=== PATIENT | female | born 1955 | race Asian ===

== ENCOUNTER → 2016-10-04 | Outpatient (CLI) | payer OTHER ==
[~2016-10-04] VITALS: Ht 167.6 cm; Wt 68.5 kg
[~2016-10-04] MED LIST: /ACETCOD2T PO; /AMIT10TA PO; /ONDA4TA PO; /PANT40TA PO; ACTO30TA6 PO; ACTO30TA7 PO; AMBI12.52 PO; AMIT10TA PO; ASPI1TAB PO; ASPI81TAEC PO; BISAC5TA PO; CARB100C PO; CINN500T PO; CIPR500T89 PO; CLON1TAB PO; CLOP75TA2 PO; COLA50CA3 PO; DOCU100C PO; DULC5TAB PO; FLAG500T PO; GABA300C3 PO; INSUH10VL SC; INSULADS SC; INSULANT SC; MELA1CAP2 PO; METF500T PO; METF750T PO; METR500T10 PO; MILKSUS5 PO; MIRA3350 PO; MULTTAB6 PO; NEUR300C PO; NICO14PA EXT; NS 1,000 ML IV SCH; PERC5TAB PO; PLAV75TA38 PO; PROT1TAB2 PO; ROSU10TA PO; SENN1TAB2 PO; SENO8.6T9 PO; SERT-138 PO; TEGR200T PO; TYLE325T5 PO; TYLENOL #3 PO; VYTO10TA PO; VYTO10TA41 PO; ZETI10TA2 PO; ZOCO20TA PO; ZOCO40TA PO; ZOFR20TA PO; [UNRECOGNIZED DRUG - OTHER] PO; ambien PO
--- NOTE | 2016-10-04 10:11 | ROOR ---
Patient Name: Mini Boles Procedure Date: 10/04/2016 9:35 AM Date of : 1955 Age: 61 Room: [facility], [facility]IN [facility] Gender: Female Note Status: Finalized Procedure: Colonoscopy Indications: Personal history of colonic polyps, Abnormal CT of the GI tract, Constipation Providers: Berry Delgado MD Referring MD: KEELY RIGGS MD Requesting Provider: Medicines: Monitored Anesthesia Care Complications: No immediate complications. Procedure: Pre-Anesthesia Assessment: - Prior to the procedure, a History and Physical was performed, and patient medications and allergies were reviewed. The patient is competent. The risks and benefits of the procedure and the sedation options and risks were discussed with the patient. All questions were answered and informed consent was obtained. Patient identification and proposed procedure were verified by the physician, the nurse and the anesthesiologist in the endoscopy suite. Mental Status Examination: alert and oriented. Airway Examination: normal oropharyngeal airway and neck mobility. Respiratory Examination: clear to auscultation. CV Examination: normal. Prophylactic Antibiotics: The patient does not require prophylactic antibiotics. Prior Anticoagulants: The patient has taken Plavix (clopidogrel), last dose was 7 days prior to procedure. ASA Grade Assessment: III - A patient with severe systemic disease. After reviewing the risks and benefits, the patient was deemed in satisfactory condition to undergo the procedure. The anesthesia plan was to use monitored anesthesia care (MAC). Immediately prior to administration of medications, the patient was re-assessed for adequacy to receive sedatives. The heart rate, respiratory rate, oxygen saturations, blood pressure, adequacy of pulmonary ventilation, and response to care were monitored throughout the procedure. The physical status of the patient was re-assessed after the procedure. The Colonoscope was introduced through the anus and advanced to the cecum, identified by appendiceal orifice and ileocecal valve. The colonoscopy was technically difficult and complex due to a tortuous colon. The patient tolerated the procedure well. The quality of the bowel preparation was adequate to identify polyps. Findings: The perianal exam findings include non-thrombosed external hemorrhoids and skin tags. A 5 to 8 mm polyp was found in the sigmoid colon. The polyp was semi-pedunculated. The polyp was removed with a hot snare. Resection and retrieval were complete. Estimated blood loss: none. A 6 to 8 mm polyp was found in the sigmoid colon. The polyp was sessile. The polyp was removed with a hot snare. Resection and retrieval were complete. Estimated blood loss: none. The entire examined colon appeared normal on direct and retroflexion views. Impression: - Non-thrombosed external hemorrhoids and perianal skin tags found on perianal exam. - One 5 to 8 mm polyp in the sigmoid colon, removed with a hot snare. Resected and retrieved. - One 6 to 8 mm polyp in the sigmoid colon, removed with a hot snare. Resected and retrieved. - The entire examined colon is normal on direct and retroflexion views. Recommendation: - Discharge patient to home (ambulatory). - Repeat colonoscopy in 3 - 5 years for surveillance. - Telephone my office for pathology results in 2 weeks. Berry Delgado MD Berry Delgado MD 10/04/2016 10:11:04 AM This report has been signed electronically. Number of Addenda: 0 Note Initiated On: 10/04/2016 9:35 AM Estimated Blood Loss: Estimated blood loss: none.
[2016-10-04 10:40] VITALS: BP 132/77
== END | disposition home or self-care (01) ==
LOC: M OPP 08:44
PROVIDERS: ATTEND Surgery
DX: K64.4 Residual hemorrhoidal skin tags (principal); D12.5 Benign neoplasm of sigmoid colon; E11.9 Type 2 diabetes mellitus without complications; E78.00 Pure hypercholesterolemia, unspecified; M19.90 Unspecified osteoarthritis, unspecified site; F33.9 Major depressive disorder, recurrent, unspecified; F41.9 Anxiety disorder, unspecified; Z97.2 Presence of dental prosthetic device (complete) (partial); Z86.73 Personal history of transient ischemic attack (TIA), and cerebral infarction without residual deficits; Z87.891 Personal history of nicotine dependence; Z79.899 Other long term (current) drug therapy; Z79.84 Long term (current) use of oral hypoglycemic drugs; Z79.4 Long term (current) use of insulin; Z79.82 Long term (current) use of aspirin; Z88.0 Allergy status to penicillin

== ENCOUNTER → 2017-01-10 | Outpatient (CLI) | payer OTHER ==
[~2017-01-10] MED LIST changes: +CRES10TA32 PO; +GABA-282 PO; -GABA300C3 PO; -NS 1,000 ML IV SCH; -ROSU10TA PO
--- NOTE | 2017-01-10 17:58 | REP ---
CT HIP WITHOUT CONTRAST: REASON: Fall one week ago with persistent pain. There is no right hip fracture. There is no evidence of a hip joint effusion. There is no evidence of a soft-tissue mass. There are mild degenerative changes which appear stable from a CT of the abdomen and pelvis of 06/28/2016 which was windowed in bone settings and reviewed along with this exam. IMPRESSION: Mild stable chronic changes. No evidence of acute fracture. Signed by Erik Garcia DO 01/10/2017 06:53 P
== END ==
LOC: M RAD 17:01
DX: M25.551 Pain in right hip (principal)

== ENCOUNTER → 2017-03-02 | Outpatient (CLI) | payer OTHER ==
[~2017-03-02] MED LIST changes: +ACTO30TA15 PO; -ACTO30TA7 PO; +CIPR-249 PO; +CLON0.5T PO; -DOCU100C PO; +DOCU100C16 PO; +JANU50TA4 PO; +METF500T13 PO; +METR1TAB66 PO; -METR500T10 PO; +PLAV1TAB2 PO; -PLAV75TA38 PO; +ROSU40TA PO; -VYTO10TA PO; +VYTO10TA22 PO; -ZETI10TA2 PO; +ZETI10TA30 PO
--- NOTE | 2017-03-03 08:07 | REP ---
CT of the chest without IV contrast: The patient has the following lung nodules: Right upper lobe, 8 mm, image 16. Right upper lobe, 5 mm, image 18. Left upper lobe, 4 mm, image 21. Right upper lobe, 5 mm, image 25. Right upper lobe, 5 mm, image 26. Right upper lobe, 3 ml, image 28. Left upper lobe superior segment, 11 mm, image 33. Right upper lobe, 5 mm, image 36. Right middle lobe, 7 mm, image 40. Right upper lobe, 6 mm, image 41 Right middle lobe, 7 mm, image 40. Right upper lobe, 8 mm, image 42. Right perihilar, 4 mm, image 43. Right perihilar, 4 mm, image 45. Right lower lobe, 5 mm, image 47. Right lower lobe, 5 mm, image 47. Left lower lobe, 6 mm, and 48. There are no acute infiltrates. No pleural effusions. There is no mediastinal or axillary lymph node enlargement. In the absence of IV contrast the study is insensitive for hilar lymph node enlargement. There is a focal blastic lesion in the T2 vertebral body. There is a focal blastic lesion in the T6 vertebral body. The thoracic aorta is unremarkable. Cardiac size is normal. There is calcified atheroma in the coronary arteries. There is a 12 mm right adrenal nodule. The visualized unenhanced upper abdominal contents are otherwise unremarkable. Impression: Multiple lung nodules. Right adrenal nodule. No adenopathy. No acute infiltrate or effusion. Coronary artery calcified vascular atheroma. Signed by Eugenio Lopez MD 03/03/2017 07:58 A
== END ==
LOC: M RAD 16:55
PROVIDERS: ATTEND Psychiatry & Neurology Neurology
DX: R91.8 Other nonspecific abnormal finding of lung field (principal); F17.210 Nicotine dependence, cigarettes, uncomplicated

== ENCOUNTER → 2017-08-27 | Outpatient (CLI) | payer OTHER | LOC: M RAD 17:31 | DX: R91.1 Solitary pulmonary nodule (principal) ==

== ENCOUNTER → 2018-02-25 | Outpatient (CLI) | payer OTHER | LOC: M RAD 13:43 | DX: R91.8 Other nonspecific abnormal finding of lung field (principal) | CPT/HCPCS: 71250 ==

== ENCOUNTER → 2018-04-15 | Outpatient (CLI) | payer OTHER | LOC: M RAD 14:57 | DX: Z12.31 Encounter for screening mammogram for malignant neoplasm of breast (principal) | CPT/HCPCS: 77067 ==

== ENCOUNTER 2018-05-06 14:36 | Emergency (ER) | payer OTHER ==
[2018-05-06 15:16] LABS: BASO # 0.1 10^3/uL (0.0-0.2); BASO % 0.7 % (0.0-1.0); EOS # 0.3 10^3/uL (0.0-0.50); EOS % 3.2 % (0.0-3.0); HEMATOCRIT 34.8 % (36.0-47.0); HEMOGLOBIN 11.9 g/dl (12.0-15.5); IMMATURE GRANULOCYTE % 0.2 % (0-3.0); LYMPH # 3.7 10^3/uL (1.5-4.5); LYMPH % 42.6 % (24.0-44.0); MEAN CORPUSCULAR HEMOGLOBIN 28.1 pg (27.0-33.0); MEAN CORPUSCULAR HGB CONC 34.2 g/dl (32.0-36.5); MEAN CORPUSCULAR VOLUME 82.1 fl (80.0-96.0); MONO # 0.7 10^3/uL (0.0-0.8); MONO % 7.6 % (0.0-5.0); NEUTROPHILS # 3.9 10^3/uL (1.8-7.7); NEUTROPHILS % 45.7 % (36.0-66.0); PLATELET COUNT, AUTOMATED 290 10^3/uL (150-450); RED BLOOD COUNT 4.24 10^6/uL (4.00-5.40); WHITE BLOOD COUNT 8.6 10^3/uL (4.0-10.0)
[2018-05-06 15:45] LABS: AMMONIA 34 uMOL/L (<32)
[2018-05-06 15:46] LABS: ABG BASE EXCESS -4.8 (-2.0-2.0); ABG HCO3 19.7 MEQ/L (22.0-26.0); ABG O2 SATURATION 96.9 % (95.0-99.0); ABG PARTIAL PRESSURE CO2 34.3 mmHg (35.0-45.0); ABG PARTIAL PRESSURE O2 96.6 mmHg (75.0-100.0); ABG STANDARD HCO3 20.5 MEQ/L (22.0-26.0); ABG TOTAL CO2 20.7 MEQ/L (23.0-31.0); ABG pH (ARTERIAL) 7.376 UNITS (7.350-7.450)
[2018-05-06 15:56] LABS: ALBUMIN 3.6 GM/DL (3.2-5.2); ALBUMIN/GLOBULIN RATIO 1.13 (1.00-1.93); ALKALINE PHOSPHATASE 166 U/L (45-117); ALT/SGPT 22 U/L (12-78); ANION GAP 13 MEQ/L (8-16); AST/SGOT 20 U/L (7-37); BILIRUBIN,DIRECT < 0.1 MG/DL (0.0-0.2); BILIRUBIN,TOTAL 0.2 MG/DL (0.2-1.0); BLOOD UREA NITROGEN 13 MG/DL (7-18); CALCIUM LEVEL 8.2 MG/DL (8.8-10.2); CARBON DIOXIDE LEVEL 20 MEQ/L (21-32); CHLORIDE LEVEL 104 MEQ/L (98-107); CK-MB VALUE MASS < 1.0 NG/ML (<3.6); CPK CREATINE PHOSPHOKINASE 31 U/L (26-192); CREATININE FOR GFR 0.92 MG/DL (0.55-1.30); GLOMERULAR FILTRATION RATE > 60.0 (>45); GLUCOSE, FASTING 214 MG/DL (70-100); MB/CK RELATIVE INDEX 3.23 (< OR =4); POTASSIUM SERUM 3.8 MEQ/L (3.5-5.1); SODIUM LEVEL 137 MEQ/L (136-145); TOTAL PROTEIN 6.8 GM/DL (6.4-8.2); TROPONIN I < 0.02 NG/ML (< 0.10)
[2018-05-06 16:08] LABS: KETONE, URINE AUTO RFX TRACE mg/dL (NEGATIVE); LEUKOCYTE ESTERASE UR AUTO RFX NEGATIVE (NEGATIVE); MUCUS, URINE RFX LARGE (NEGATIVE); NITRITE, URINE AUTO RFX NEGATIVE (NEGATIVE); RBC, URINE AUTO RFX 8 /HPF (0-3); SPECIFIC GRAVITY UR AUTO RFX 1.018 (1.002-1.035); SQUAM EPITHELIAL CELL UR AURFX 4 /HPF (0-6); WBC, URINE AUTO RFX 8 /HPF (0-3)
[2018-05-06 17:54] LABS: CK-MB VALUE MASS < 1.0 NG/ML (<3.6); CPK CREATINE PHOSPHOKINASE 30 U/L (26-192); MB/CK RELATIVE INDEX 3.33 (< OR =4); TROPONIN I < 0.02 NG/ML (< 0.10)
[2018-05-06] MEDS: NS 500 ML IV (20:25)
[2018-05-07 09:32] LABS: BEDSIDE GLUCOSE 230 MG/DL (80-115)
== END 2018-05-06 20:55 | disposition home or self-care (01) ==
LOC: M ED 14:36
DX: I95.1 Orthostatic hypotension (principal); E11.9 Type 2 diabetes mellitus without complications; I10 Essential (primary) hypertension; G40.909 Epilepsy, unspecified, not intractable, without status epilepticus; F33.9 Major depressive disorder, recurrent, unspecified; Z79.899 Other long term (current) drug therapy; Z79.82 Long term (current) use of aspirin; Z79.84 Long term (current) use of oral hypoglycemic drugs; Z88.0 Allergy status to penicillin
CPT/HCPCS: 71046

== ENCOUNTER → 2019-07-30 | Outpatient (CLI) | payer OTHER ==
[~2019-07-30] MED LIST changes: -/ACETCOD2T PO; -/AMIT10TA PO; -/ONDA4TA PO; -/PANT40TA PO; +ACET1TAB15 PO; +AMIT1TAB10 PO; +ASPI81TA26 PO; -CLON0.5T PO; +CLON0.5T2 PO; -CLON1TAB PO; +CLON1TAB8 PO; +CRES10TA PO; -CRES10TA32 PO; +CYTO1TAB PO; -GABA-282 PO; +GABA-843 PO; -METF750T PO; +METF750T36 PO; +METR-265 PO; -METR1TAB66 PO; +NICO14DI20 EXT; -NICO14PA EXT; +NICO21PAT TD; +OMEP40CA97 PO; +ONDA-1 PO; -ROSU40TA PO; +ROSU40TA4 PO; +SENN-53 PO; -SENN1TAB2 PO; +SUCR1TA PO; +ZETI10TA16 PO; -ZETI10TA30 PO; -ZOFR20TA PO; +ZOFR4TAB16 PO; -[UNRECOGNIZED DRUG - OTHER] PO
--- NOTE | 2019-07-30 19:46 | REP ---
LOW DOSE LUNG SCREENING CT: Low dose lung screening CT exam is performed without the use of intravenous contrast and compared to prior study of 02/25/2018. Scattered interstitial fibrosis is seen diffusely bilaterally. No suspicious nodular opacity is seen. No consolidation is seen. The heart is normal in size. Mediastinal contours are unremarkable. There are atherosclerotic calcifications of the thoracic aorta with no evidence of aneurysm. There are degenerative changes of the spine. IMPRESSION: Lung rads category [address] exam. Annual screening lung CT recommended. Unreviewed
== END ==
LOC: M RAD 16:21
PROVIDERS: ATTEND Internal Medicine Pulmonary Disease
DX: Z12.2 Encounter for screening for malignant neoplasm of respiratory organs (principal); F17.210 Nicotine dependence, cigarettes, uncomplicated

== ENCOUNTER 2019-08-16 19:01 | Inpatient (IN) | payer OTHER ==
[~2019-08-16] VITALS: Ht 165.1 cm; Wt 57.6 kg
[2019-08-16] MEDS ORDERED: TRUL10IN SQ (19:14)
[2019-08-16] MEDS ORDERED: LITH150C PO (19:14)
[2019-08-16 19:48] LABS: BASO % 0.2 % (0.0-1.0); EOS # 0.1 10^3/uL (0.0-0.5); EOS % 0.4 % (0.0-3.0); HEMATOCRIT 35.6 % (36.0-47.0); HEMOGLOBIN 11.8 g/dl (12.0-15.5); LYMPH # 2.4 10^3/uL (1.5-5.0); MEAN CORPUSCULAR HEMOGLOBIN 28.6 pg (27.0-33.0); MEAN CORPUSCULAR HGB CONC 33.1 g/dl (32.0-36.5); MEAN CORPUSCULAR VOLUME 86.2 fl (80.0-96.0); MONO # 1.3 10^3/uL (0.0-0.8); MONO % 6.5 % (0.0-5.0); NEUTROPHILS # 16.1 10^3/uL (1.5-8.5); NEUTROPHILS % 80.2 % (36.0-66.0); PLATELET COUNT, AUTOMATED 221 10^3/uL (150-450); RED BLOOD COUNT 4.13 10^6/uL (4.00-5.40); WHITE BLOOD COUNT 20.1 10^3/uL (4.0-10.0)
[2019-08-16 20:25] LABS: ALBUMIN 3.2 GM/DL (3.2-5.2); ALT/SGPT 26 U/L (12-78); BILIRUBIN,DIRECT 0.3 MG/DL (0.0-0.2); BILIRUBIN,TOTAL 0.9 MG/DL (0.2-1.0); BLOOD UREA NITROGEN 18 MG/DL (7-18); CALCIUM LEVEL 8.2 MG/DL (8.8-10.2); CARBON DIOXIDE LEVEL 23 MEQ/L (21-32); CHLORIDE LEVEL 100 MEQ/L (98-107); CREATININE FOR GFR 0.82 MG/DL (0.55-1.30); GLOMERULAR FILTRATION RATE > 60.0 (>45); GLUCOSE, FASTING 239 MG/DL (70-100); LIPASE 79 U/L (73-393); POTASSIUM SERUM 3.4 MEQ/L (3.5-5.1); SODIUM LEVEL 133 MEQ/L (136-145); TOTAL PROTEIN 6.5 GM/DL (6.4-8.2)
[2019-08-16] MEDS ORDERED: TRES1INJ2 SC (20:25)
[2019-08-16] MEDS ORDERED: ISOVUE-370 76% 100ML VIAL (Q9967) As Ordered ONE (20:29)
[2019-08-16 21:01] LABS: INR 1.13; PROTHROMBIN TIME 14.2 SECONDS (11.8-14.0)
[2019-08-16 21:02] LABS: PARTIAL THROMBOPLASTIN TIME 34.6 SECONDS (25.0-38.4)
[2019-08-16 21:11] LABS: CK-MB VALUE MASS < 1.0 NG/ML (<3.6); CPK CREATINE PHOSPHOKINASE 30 U/L (26-192); MB/CK RELATIVE INDEX 3.33 (< OR =4); TROPONIN I < 0.02 NG/ML (< 0.10)
--- NOTE | 2019-08-16 21:29 | REPVR ---
PROCEDURE INFORMATION: Exam: CT Head Without Contrast Exam date and time: 08/16/2019 8:31 PM Age: 64 years old Clinical indication: Injury or trauma; Fall; Initial encounter; Blunt trauma (contusions or hematomas) TECHNIQUE: Imaging protocol: Computed tomography of the head without contrast. Radiation optimization: All CT scans at this facility use at least one of these dose optimization techniques: automated exposure control; mA and/or kV adjustment per patient size (includes targeted exams where dose is matched to clinical indication); or iterative reconstruction. COMPARISON: CT Head without contrast 06/22/2016 12:21 PM FINDINGS: Brain: No intracranial mass, focal mass effect or midline shift. No acute intracranial hemorrhage. Mild decreased attenuation in periventricular/centrum semiovale white matter. No focal effacement of cortical sulci to indicate acute cortical infarct. Remote right MCA infarct with encephalomalacia and compensatory ventricular dilatation Ventricles: Prominent ventricles and CSF spaces suggest parenchymal volume loss. Bones/joints: No calvarial fracture or destructive process. Sinuses: Visualized paranasal sinuses are unremarkable. Mastoid air cells: Mastoid air cells are normally aerated. Orbits: Visualized globes and orbits are unremarkable. Soft tissues: No focal extracranial soft tissue swelling. IMPRESSION: 1. No acute intracranial abnormality. 2. 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 Electronically signed by: Santy Erwin On 08/16/2019 21:28:33 PM
--- NOTE | 2019-08-16 21:30 | REPVR ---
PROCEDURE INFORMATION: Exam: CT Cervical Spine Without Contrast Exam date and time: 08/16/2019 8:31 PM Age: 64 years old Clinical indication: Injury or trauma; Fall; Initial encounter; Blunt trauma TECHNIQUE: Imaging protocol: Computed tomography images of the cervical spine without contrast. Radiation optimization: All CT scans at this facility use at least one of these dose optimization techniques: automated exposure control; mA and/or kV adjustment per patient size (includes targeted exams where dose is matched to clinical indication); or iterative reconstruction. COMPARISON: No relevant prior studies available. FINDINGS: Vertebrae: No segmental vertebral malalignment. Vertebral body height is maintained at all levels. No acute fracture. No destructive or blastic cervical spine osseous lesion. Discs/Spinal canal/Neural foramina: Minimal disc height loss and endplate osteophytes C5-6 and C6-7. Soft tissues: Soft tissues show no concerning abnormality or asymmetry. Lungs: Imaged lung apices demonstrate no concerning abnormality. Pleural space: No apical pneumothorax. IMPRESSION: No acute fracture or traumatic segmental cervical malalignment. Electronically signed by: Santy Erwin On 08/16/2019 21:30:12 PM
--- NOTE | 2019-08-16 21:34 | REPVR ---
PROCEDURE INFORMATION: Exam: CT Chest With Contrast Exam date and time: 08/16/2019 8:31 PM Age: 64 years old Clinical indication: Injury or trauma; Fall; Initial encounter; Blunt trauma (contusions or hematomas) TECHNIQUE: Imaging protocol: Computed tomography of the chest with intravenous contrast. Radiation optimization: All CT scans at this facility use at least one of these dose optimization techniques: automated exposure control; mA and/or kV adjustment per patient size (includes targeted exams where dose is matched to clinical indication); or iterative reconstruction. Contrast material: ISOVUE 370; Contrast volume: 100 ml; Contrast route: IV COMPARISON: CT Chest without contrast 02/25/2018 1:56 PM FINDINGS: No mediastinal hematoma. Thoracic aorta shows no evidence of acute traumatic injury or dissection. Atherosclerotic calcifications in the coronary vessels. No enlarged mediastinal lymph nodes. No hemothorax or pneumothorax. Pulmonary vascular/interstitial pattern does not suggest active pulmonary edema. No evidence of lung contusion, aspiration or concerning lung mass. No central endobronchial lesion. Apical predominant centrilobular emphysema is present. Atelectasis is present at the lung bases. No acute displaced fractures involving ribs, thoracic spine or shoulder girdle. No asymmetric abnormality of the extrathoracic soft tissues. IMPRESSION: No CT evidence of acute thoracic trauma Electronically signed by: Santy Erwin On 08/16/2019 21:34:04 PM
--- NOTE | 2019-08-16 21:35 | REPVR ---
PROCEDURE INFORMATION: Exam: CT Thoracic Spine Without Contrast Exam date and time: 08/16/2019 8:31 PM Age: 64 years old Clinical indication: Injury or trauma; Fall; Initial encounter; Blunt trauma (contusions or hematomas) TECHNIQUE: Imaging protocol: Computed tomography images of the thoracic spine without contrast. Radiation optimization: All CT scans at this facility use at least one of these dose optimization techniques: automated exposure control; mA and/or kV adjustment per patient size (includes targeted exams where dose is matched to clinical indication); or iterative reconstruction. COMPARISON: No relevant prior studies available. FINDINGS: No segmental malalignment of the vertebral bodies. Vertebral body height is maintained. No fracture or destructive process. Incidental bone island in the T1 vertebral body Intervertebral disc height is maintained, appropriate for age. No paraspinous soft tissue mass or focal soft tissue edema. IMPRESSION: No fracture or other acute abnormality involving the thoracic spine. Electronically signed by: Santy Erwin On 08/16/2019 21:34:52 PM
--- NOTE | 2019-08-16 21:40 | REPVR ---
PROCEDURE INFORMATION: Exam: CT Abdomen And Pelvis With Contrast Exam date and time: 08/16/2019 8:31 PM Age: 64 years old Clinical indication: Injury or trauma; Fall; Initial encounter; Blunt; Generalized TECHNIQUE: Imaging protocol: Computed tomography of the abdomen and pelvis with intravenous contrast. Radiation optimization: All CT scans at this facility use at least one of these dose optimization techniques: automated exposure control; mA and/or kV adjustment per patient size (includes targeted exams where dose is matched to clinical indication); or iterative reconstruction. Contrast material: ISOVUE 370; Contrast volume: 100 ml; Contrast route: IV COMPARISON: CT ABD PELVIS WITH CONTRAST 06/28/2016 12:39 AM FINDINGS: ABDOMEN: No intra-abdominal hematoma. Liver, spleen, gallbladder, pancreas and adrenal glands are unremarkable. Kidneys are unremarkable aside from stable bilateral simple fluid density renal cysts. No evidence of bowel obstruction, pneumoperitoneum or free abdominal fluid. Main portal and splenic veins enhance normally. Atherosclerotic change present in the aorta, without aneurysm. PELVIS: No pelvic hematoma. Urinary bladder appears normal. No acute pelvic fracture or malalignment. No acute pelvic fracture or malalignment. Normal appearing appendix is incidentally noted. No evidence of acute diverticulitis. Circumferential colonic long segment mural and pericolonic stranding suggests inflammatory or infectious colitis. No intramural air to suggest ischemic colitis. IMPRESSION: No acute intra-abdominal or pelvic trauma. The appearance of the colon from the mid ascending to the distal descending suggests inflammatory or infectious colitis without obstruction or perforation. Simple fluid density bilateral renal cysts that are stable and require no specific followup Electronically signed by: Santy Erwin On 08/16/2019 21:40:03 PM
--- NOTE | 2019-08-16 21:41 | REPVR ---
PROCEDURE INFORMATION: Exam: CT Lumbar Spine Without Contrast Exam date and time: 08/16/2019 8:31 PM Age: 64 years old Clinical indication: Injury or trauma; Fall; Initial encounter; Blunt trauma (contusions or hematomas) TECHNIQUE: Imaging protocol: Computed tomography images of the lumbar spine without contrast. Radiation optimization: All CT scans at this facility use at least one of these dose optimization techniques: automated exposure control; mA and/or kV adjustment per patient size (includes targeted exams where dose is matched to clinical indication); or iterative reconstruction. COMPARISON: No relevant prior studies available. FINDINGS: No segmental lumbar vertebral malalignment. Vertebral body height and morphology is maintained. No acute fracture or destructive process. Mild degenerative disc height loss and endplate osteophytes L5-S1, L2-3 and L3-4 without high-grade osseous spinal canal narrowing. No dilatation of the imaged distal abdominal aorta. No significant abnormality of the imaged retroperitoneum. IMPRESSION: No fracture or other acute abnormality involving the lumbar spine. Mild multilevel degenerative disc disease. Electronically signed by: Santy Erwin On 08/16/2019 21:41:15 PM
[2019-08-16] MEDS ORDERED: MORPHINE 2 MG/ML 1ML VIAL (J2270) IV ONE (22:30)
[2019-08-16] MEDS ORDERED: ONDANSETRON 4MG/2ML VIAL (J2405) IV ONE (22:30)
[2019-08-16] MEDS ORDERED: NICOTINE 21MG/24HR 1 EA TRANSDERMAL TD ONE (22:30)
[2019-08-16] MEDS ORDERED: ACET1TAB55 PO (23:31)
[2019-08-16] MEDS ORDERED: GABA-1171 PO (23:31)
[2019-08-16] MEDS ORDERED: NICO21PAT TOP (23:31)
[2019-08-16] MEDS ORDERED: CARB10TACH PO (23:31)
[2019-08-16] MEDS ORDERED: JANU50TA22 PO (23:31)
[2019-08-16] MEDS ORDERED: PLAV1TAB2 PO (23:31)
[2019-08-16] MEDS ORDERED: OMEP-221 PO (23:31)
[2019-08-17 00:10] VITALS: BP 110/58
[2019-08-17] MEDS ORDERED: DEXTROSE 50% 50 ML SYRINGE IV PRN (00:15)
[2019-08-17] MEDS ORDERED: GLUCOSE 4 GM CHEW TABLET PO PRN (00:15)
[2019-08-17] MEDS ORDERED: ONDANSETRON 4MG/2ML VIAL (J2405) IV PRN (00:15)
[2019-08-17] MEDS ORDERED: ACETAMINOPHEN TAB 650MG DOSE (2X325MG) PO PRN (00:15)
[2019-08-17] MEDS ORDERED: NS 1,000 ML IV ONE (00:15)
[2019-08-17] MEDS ORDERED: GLUCAGON FOR INJ 1 MG VIAL (J1610) SC PRN (00:15)
[2019-08-17] MEDS ORDERED: POTASSIUM CHLORIDE 10 MEQ SR TABLET PO ONE (00:30)
--- NOTE | 2019-08-17 01:06 | HPEPDOC ---
[facility] Medical History & Physical Date of Admission Aug 17, 2019 Date of Service: Aug 17, 2019 Attending Physician: AMANDA CORONA MD History and Physical CHIEF COMPLAINT: Nausea/vomiting and abdominal pain HISTORY OF PRESENT ILLNESS: Patient is a 64 year old female with an extensive past medical history who presented to the [facility] ER with complaint of nausea, vomiting, and abdominal pain for 4 days duration. The patient is accompanied by her who provides the majority of the history. The patient is according to her at her baseline mentation and has poor memory. The patients husb and stated that about 4 days ago she had developed nausea and vomiting and has been unable to keep anything down including sips of water. Additionally the patient had been complaining of abdominal pain in her left upper quadrant. Yesterday the patient had gone to use the bathroom. The patients stated that he heard a loud noise and went into the bathroom to find that the patient had fallen forward off the toilet. He stated that she was at her baseline mentation and that she has done this before in the past. He stated that she strains on the toilet and sometimes makes herself pass out. After this he gave her some stool softener which resulted in her having two episodes of watery non-bloody stool. The states that since yesterday she has had no further bowel movement. He states that the patient did complain of chills once a couple days ago. The patients decided to take her to the ED as she was continuing to have abdominal pain and nausea and vomiting with poor oral intake. At the ER the patient was found to be vitally stable. She was afebrile. A CBC demonstrated an elevation in her WBC. She was given Zofran and morphine in the ER. The patient received CT imaging of her thoracic, lumbar, and cervical spine due to her fall. Additionally she received a CT of the chest and head. Her imaging was negative for any acute process. She did receive a CT scan of the a bdomen/pelvis which demonstrated inflammation in her mid ascending to distal descending colon suggesting possible inflammatory or infectious colitis. Hospitalist service was consulted and the patient was admitted for further evaluation and management PAST MEDICAL HISTORY: 1. Seizure Disorder 2. COPD 3. 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 Diabetes Mellitus Type 2 5. Anxiety/Depression 6. History of bleeding peptic ulcer PAST SURGICAL HISTORY: 1. Hysterectomy in 1997 2. Colonoscopy 3. Upper Endoscopy with biopsy SOCIAL HISTORY: Patient lives at home with her and her husbands son. Her assists her with her ADLs including washing herself. She is a current smoker. She smokes 1 ppd and has been smoking since the age of 18. She does not drink alcohol. She does not use illicit or IV drugs. FAMILY HISTORY: Patients mother had suffered a stroke. Her father from old age however was a heavy drinker. Her sister is alive with diabetes ALLERGIES: Please see below. REVIEW OF SYSTEMS: CONSTITUTIONAL: Denies fevers. Admits to chills x1. Denies unintentional weight loss. Denies night sweats. HEENT: Denies cough. Denies sore throat. Admits to occasional dysphagia associated with her previous stroke. Admits to chronic runny nose. CARDIOVASCULAR: Denies chest pain. Denies palpitations. Denies feelings of the heart racing RESPIRATORY: Denies shortness of breath or wheezing. denies cough or sputum production GASTROINTESTINAL: Admits to abdominal pain. Admits to nausea and vomiting. Admits to chronic constipation GENITOURINARY: Admits to dark colored urine. Denies increased frequency or urgen cy. Denies dysuria SKIN: Denies any rashes or lesions MUSCULOSKELETAL: Admits to chronic left sided weakness with left sided foot drop. NEUROLOGICAL: Admits to left sided weakness. Admits to gait disturbance secondary to foot drop. PSYCHIATRIC: Admits to history of anxiety and depression ENDOCRINE: Denies heat intolerance or cold intolerance. Admits to history of DMII HEMATOLOGIC/LYMPHATIC: Admits to history of GI bleed. Denies DVT or PE HOME MEDICATIONS: Please see below. PHYSICAL EXAMINATION: VITAL SIGNS: Temperature 97.3, pulse 86, respiratory rate 16, blood pressure 103/56, pulse oximetry 99% on room air. GENERAL APPEARANCE: Awake, alert, and oriented. She does not appear in any acute distress. She is able speak and understand/follow commands however she refuses to participated fully in providing history HEENT: Atraumtic, normocephalic. Eyes are nonicteric. Trachea is midline. Mucous membranes appear dry. Conjunctiva is pale. CARDIOVASCULAR: Normal S1, S2. Regular rate and rhythm. No clicks rubs or murmurs LUNGS: Clear vesicular breath sounds bilaterally with good respiratory effort. No wheezes, rhonchi or rales. Symmetric chest expansion. ABDOMEN: Soft, nondistended. Tenderness in left upper quadrant. No rebound tenderness or guarding. Normoactive bowel sounds throughout MUSCULOSKELETAL: 3/5 muscle strength testing in patients left upper and lower extremity. 5/5 muscle strength testing in patients right upper and lower extremity EXTREMITIES: No edema. Full and equal pulses in bilateral upper and lower extremities NEUROLOGICAL: No focal neurological deficits PSYCHIATRIC: Mood and affect appear appropriate LABORATORY DATA: See below. IMAGING: PROCEDURE INFORMATION: Exam: CT Thoracic Spine Without Contrast Exam date and time: 08/16/2019 8:31 PM Age: 64 years old Clinical indication: Injury or trauma; Fall; Initial encounter; Blunt trauma (contusions or hematomas) TECHNIQUE: Imaging protocol: Computed tomography images of the thoracic spine without contrast. Radiation optimization: All CT scans at this facility use at least one of these dose optimization techniques: automated exposure control; mA and/or kV adjustment per patient size (includes targeted exams where dose is matched to clinical indication); or iterative reconstruction. COMPARISON: No relevant prior studies available. FINDINGS: No segmental malalignment of the vertebral bodies. Vertebral body height is maintained. No fracture or destructive process. Incidental bone island in the T1 vertebral body Intervertebral disc height is maintained, appropriate for age. No paraspinous soft tissue mass or focal soft tissue edema. IMPRESSION: No fracture or other acute abnormality involving the thoracic spine. Electronically signed by: Santy Erwin On 08/16/2019 21:34:52 PM PROCEDURE INFORMATION: Exam: CT Lumbar Spine Without Contrast Exam date and time: 08/16/2019 8:31 PM Age: 64 years old Clinical indication: Injury or trauma; Fall; Initial encounter; Blunt trauma (contusions or hematomas) TECHNIQUE: Imaging protocol: Computed tomography images of the lumbar spine without contrast. Radiation optimization: All CT scans at this facility use at least one of these dose optimization techniques: automated exposure control; mA and/or kV adjustment per patient size (includes targeted exams where dose is matched to clinical indication); or iterative reconstruction. COMPARISON: No relevant prior studies available. FINDINGS: No segmental lumbar vertebral malalignment. Vertebral body height and morphology is maintained. No acute fracture or destructive process. Mild degenerative disc height loss and endplate osteophytes L5-S1, L2-3 and L3-4 without high-grade osseous spinal canal narrowing. No dilatation of the imaged distal abdominal aorta. No significant abnormality of the imaged retroperitoneum. IMPRESSION: No fracture or other acute abnormality involving the lumbar spine. Mild multilevel degenerative disc disease. Electronically signed by: Santy Erwin On 08/16/2019 21:41:15 PM PROCEDURE INFORMATION: Exam: CT Head Without Contrast Exam date and time: 08/16/2019 8:31 PM Age: 64 years old Clinical indication: Injury or trauma; Fall; Initial encounter; Blunt trauma (contusions or hematomas) TECHNIQUE: Imaging protocol: Computed tomography of the head without contrast. Radiation optimization: All CT scans at this facility use at least one of these dose optimization techniques: automated exposure control; mA and/or kV adjustment per patient size (includes targeted exams where dose is matched to clinical indication); or iterative reconstruction. COMPARISON: CT Head without contrast 06/22/2016 12:21 PM FINDINGS: Brain: No intracranial mass, focal mass effect or midline shift. No acute intracranial hemorrhage. Mild decreased attenuation in periventricular/centrum semiovale white matter. No focal effacement of cortical sulci to indicate acute cortical infarct. Remote right MCA infarct with encephalomalacia and compensatory ventricular dilatation Ventricles: Prominent ventricles and CSF spaces suggest parenchymal volume loss. Bones/joints: No calvarial fracture or destructive process. Sinuses: Visualized paranasal sinuses are unremarkable. Mastoid air cells: Mastoid air cells are normally aerated. Orbits: Visualized globes and orbits are unremarkable. Soft tissues: No focal extracranial soft tissue swelling. IMPRESSION: 1. No acute intracranial abnormality. 2. 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 Electronically signed by: Santy Erwin On 08/16/2019 21:28:33 PM PROCEDURE INFORMATION: Exam: CT Chest With Contrast Exam date and time: 08/16/2019 8:31 PM Age: 64 years old Clinical indication: Injury or trauma; Fall; Initial encounter; Blunt trauma (contusions or hematomas) TECHNIQUE: Imaging protocol: Computed tomography of the chest with intravenous contrast. Radiation optimization: All CT scans at this facility use at least one of these dose optimization techniques: automated exposure control; mA and/or kV adjustment per patient size (includes targeted exams where dose is matched to clinical indication); or iterative reconstruction. Contrast material: ISOVUE 370; Contrast volume: 100 ml; Contrast route: IV COMPARISON: CT Chest without contrast 02/25/2018 1:56 PM FINDINGS: No mediastinal hematoma. Thoracic aorta shows no evidence of acute traumatic injury or dissection. Atherosclerotic calcifications in the coronary vessels. No enlarged mediastinal lymph nodes. No hemothorax or pneumothorax. Pulmonary vascular/interstitial pattern does not suggest active pulmonary edema. No evidence of lung contusion, aspiration or concerning lung mass. No central endobronchial lesion. Apical predominant centrilobular emphysema is present. Atelectasis is present at the lung bases. No acute displaced fractures involving ribs, thoracic spine or shoulder girdle. No asymmetric abnormality of the extrathoracic soft tissues. IMPRESSION: No CT evidence of acute thoracic trauma Electronically signed by: Santy Erwin On 08/16/2019 21:34:04 PM PROCEDURE INFORMATION: Exam: CT Cervical Spine Without Contrast Exam date and time: 08/16/2019 8:31 PM Age: 64 years old Clinical indication: Injury or trauma; Fall; Initial encounter; Blunt trauma TECHNIQUE: Imaging protocol: Computed tomography images of the cervical spine without contrast. Radiation optimization: All CT scans at this facility use at least one of these dose optimization techniques: automated exposure control; mA and/or kV adjustment per patient size (includes targeted exams where dose is matched to clinical indication); or iterative reconstruction. COMPARISON: No relevant prior studies available. FINDINGS: Vertebrae: No segmental vertebral malalignment. Vertebral body height is maintained at all levels. No acute fracture. No destructive or blastic cervical spine osseous lesion. Discs/Spinal canal/Neural foramina: Minimal disc height loss and endplate osteophytes C5-6 and C6-7. Soft tissues: Soft tissues show no concerning abnormality or asymmetry. Lungs: Imaged lung apices demonstrate no concerning abnormality. Pleural space: No apical pneumothorax. IMPRESSION: No acute fracture or traumatic segmental cervical malalignment. Electronically signed by: Santy Erwin On 08/16/2019 21:30:12 PM PROCEDURE INFORMATION: Exam: CT Abdomen And Pelvis With Contrast Exam date and time: 08/16/2019 8:31 PM Age: 64 years old Clinical indication: Injury or trauma; Fall; Initial encounter; Blunt; Generalized TECHNIQUE: Imaging protocol: Computed tomography of the abdomen and pelvis with intravenous contrast. Radiation optimization: All CT scans at this facility use at least one of these dose optimization techniques: automated exposure control; mA and/or kV adjustment per patient size (includes targeted exams where dose is matched to clinical indication); or iterative reconstruction. Contrast material: ISOVUE 370; Contrast volume: 100 ml; Contrast route: IV COMPARISON: CT ABD PELVIS WITH CONTRAST 06/28/2016 12:39 AM FINDINGS: ABDOMEN: No intra-abdominal hematoma. Liver, spleen, gallbladder, pancreas and adrenal glands are unremarkable. Kidneys are unremarkable aside from stable bilateral simple fluid density renal cysts. No evidence of bowel obstruction, pneumoperitoneum or free abdominal fluid. Main portal and splenic veins enhance normally. Atherosclerotic change present in the aorta, without aneurysm. PELVIS: No pelvic hematoma. Urinary bladder appears normal. No acute pelvic fracture or malalignment. No acute pelvic fracture or malalignment. Normal appearing appendix is incidentally noted. No evidence of acute diverticulitis. Circumferential colonic long segment mural and pericolonic stranding suggests inflammatory or infectious colitis. No intramural air to suggest ischemic colitis. IMPRESSION: No acute intra-abdominal or pelvic trauma. The appearance of the colon from the mid ascending to the distal descending suggests inflammatory or infectious colitis without obstruction or perforation. Simple fluid density bilateral renal cysts that are stable and require no specific followup Electronically signed by: Santy Erwin On 08/16/2019 21:40:03 PM MICROBIOLOGY: Please see below. ASSESSMENT: Patient is a 64 year old female who presented the [facility] ER with complaint of nausea, vomiting and abdominal pain for 4 days duration and found to have colitis . PLAN: 1. Nausea vomiting and Abdominal pain likely secondary to colitis/enteritis -Patient has had nausea vomiting and abdominal pain for 4 days duration. She has been unable to hold down food or liquids. On physical exam she did appear dry. She has been afebrile with a mild elevation in her WBC -Will give IV hydration. 1L Normal Saline bolus followed with NS at 80ml/hr. -Clear liquids diet. Will advance as tolerated -Zofran PRN for nausea/vomiting -GI panel pending -Will hold off on antibiotics currently. Majority of infectious colitis resolves with supportive measures only. Will await GI panel and trend patients CBC and clinical status. -Will trend BMP for electrolyte management as patient has had vomiting 2. Hypokalemia -likely secondary to vomiting. Will monitor and replete as necessary 3. Fall -Patient had a reported fall at home. Although according to the she fell forward off of the toilet. The patient has reportedly done this before. Patient has a history of multiple strokes. Additionally she may have some orthostasis from nausea and vomiting leading to dehydrations -Imaging of head, cervical, thoracic, and lumbar spine were all negative for any acute disease -Fall precautions 4. Diabetes Mellitus Type 2 -Patient is currently hyperglycemic. -Levemir 15 units daily -Sliding scale coverage -Adjust long acting as need during her hospitalization to achieve BGL < 180. 5. History of stroke x4 -Patient has a history of strokes x4 resulting in left and right residual effects. Most notably left sided weakness. -Will continue home Plavix, aspirin, and statin 6. History of Upper GI bleed -Patient has a history of upper GI bleed secondary to a peptic ulcer. She does have pain in her left upper quadrant. She denies any bloody vomit or stools. She denies any current NSAID use. Patient is on both aspirin and plavix for secondary prevention of CVA. -Will place patient on IV Protonix BID -BUN is normal. Hgb stable. 7. Seizure disorder -Patient states that she has a seizure disorder. She has been seizure free fo r years according to the patients . She is currently taking Tegretol. Will continue 8. Anxiety/Depression/Bipolar -Patient currently on [place]. Will continue -Will continue Zoloft and Clonazepam -Gabapentin 9. tobacco Abuse -Nicotine patch 21 mg daily 10. DVT prophylaxis -TEDs and Sequentials Vital Signs Vital Signs Date Time Temp Pulse Resp B/P (MAP) Pulse Ox O2 Delivery O2 Flow Rate FiO2 08/16/19 23:46 71 97 08/16/19 23:45 94/54 (67) 08/16/19 23:00 18 08/16/19 19:02 97.3 Room Air Laboratory Data Labs 24H Laboratory Tests 2 08/16/19 19:30: Immature Granulocyte % (Auto) 0.7, Neutrophils (%) (Auto) 80.2H, Lymphocytes (%) (Auto) 12.0L, Monocytes (%) (Auto) 6.5H, Eosinophils (%) (Auto) 0.4, Basophils (%) (Auto) 0.2, Neutrophils # (Auto) 16.1H, Lymphocytes # (Auto) 2.4, Monocytes # (Auto) 1.3H, Eosinophils # (Auto) 0.1, Basophils # (Auto) 0.0, Nucleated Red Blood Cells % (auto) 0.0, Prothrombin Time 14.2H, Prothromb Time International Ratio 1.13, Activated Partial Thromboplast Time 34.6, Anion Gap 10, Glomerular Filtration Rate > 60.0, Calcium Level 8.2L, Total Bilirubin 0.9, Direct Bilirubin 0.3H, Aspartate Amino Transf (AST/SGOT) 23, Alanine Aminotransferase (ALT/SGPT) 26, Alkaline Phosphatase 90, Total Creatine Kinase 30, Creatine Kinase MB < 1.0, Creatine Kinase MB Relative Index 3.33, Troponin I < 0.02, Total Protein 6.5, Albumin 3.2, Albumin/Globulin Ratio 0.97L, Lipase 79, Thyroid Stimulating Hormone (TSH) 1.000 08/16/19 21:06: Lactic Acid Level 1.0 08/16/19 21:18: POC Glucose (Misc Panel) 208H, POC Sodium (Misc Panel) 131L, POC Potassium (Misc Panel) 3.0L, POC Chloride (Misc Panel) 97L, POC Total CO2 (Misc Panel) 23.0, POC Blood Urea Nitrogen (Misc Panel 16, POC Ionized Calcium (Misc Panel) 4.2L, POC Creatinine (Misc Panel) 0.5L, POC Hematocrit (Misc Panel) 28.0L CBC/BMP Laboratory Tests 08/16/19 19:30 Home Medications Scheduled Aspirin (Aspirin EC) 81 Mg Tabec, 81 MG PO DAILY Carbamazepine (Carbamazepine) 100 Mg Tab.chew, 100 MG PO BID Clonazepam (Clonazepam) 0.5 Mg Tab, 0.5 MG PO BID Clopidogrel Bisulfate (Plavix) 75 Mg Tablet, 75 MG PO DAILY Dulaglutide (Trulicity) 0.75 Mg/0.5 Ml Pen.injctr, 1 INJ SQ QWEEK TAKES ON SUNDAY Gabapentin (Gabapentin) 100 Mg Capsule, 200 MG PO BID Insulin Degludec (Tresiba Flextouch U-100) 100 Unit/1 Ml Insuln.pen, 32 UNIT SC BID Insulin Human Lispro (Novolog) 100 U/Ml Inj, 1 DOSE SC ACHS [place] Carbonate ([place] Carbonate) 150 Mg Capsule, 150 MG PO QHS Nicotine (Nicotine Patch) 21 Mg Patch.td24, 1 PATCH TOP DAILY Omeprazole (Omeprazole) 40 Mg Capsule.dr, 40 MG PO DAILY Rosuvastatin Calcium (Rosuvastatin Calcium) 40 Mg Tab, 40 MG PO DAILY Sertraline HCl (Sertraline HCl) 100 Mg Tab, 200 MG PO QHS Sitagliptin Phos/Metformin HCl (Janumet Xr 50-500 mg Tablet) 1 Each Tbmp.24hr, 1 TAB PO QHS Scheduled PRN Acetaminophen (Acetaminophen) 325 Mg Tablet, 650 MG PO Q4-6H PRN for PAIN Allergies Coded Allergies: Penicillins (Verified Allergy, Intermediate, Rash & Hives, 08/16/19) A-FIB/CHADSVASC A-FIB History Current/History of A-Fib/PAF?: No AURELIANO HANSEN DO Aug 17, 2019 01:06 AMANDA CORONA MD Aug 17, 2019 06:35
[2019-08-17] MEDS: HumaLOG INSULIN (NovoLOG) PER UNIT SC SCH ×5 (02:37→21:00)
[2019-08-17] MEDS: GABAPENTIN 100 MG CAP PO SCH ×3 (02:54→21:25)
[2019-08-17] MEDS: carBAMazepine 100 MG *1/2* TAB PO SCH ×3 (02:54→21:25)
[2019-08-17] MEDS: PANTOPRAZOLE 40MG INJ (PROTONIX) (C9113) IV SCH ×3 (02:55→21:25)
[2019-08-17] MEDS: LITHIUM CARBONATE 150 MG CAP PO SCH ×2 (02:55→21:25)
[2019-08-17] MEDS: NS 1,000 ML IV SCH ×2 (02:58→12:44)
[2019-08-17] MEDS: SERTRALINE 100 MG TAB PO SCH ×2 (02:58→21:25)
[2019-08-17 06:00] VITALS: BP 133/70
[2019-08-17 06:02] LABS: HEMATOCRIT 31.5 % (36.0-47.0); HEMOGLOBIN 10.4 g/dl (12.0-15.5); MEAN CORPUSCULAR HEMOGLOBIN 28.7 pg (27.0-33.0); PLATELET COUNT, AUTOMATED 201 10^3/uL (150-450); RED BLOOD COUNT 3.62 10^6/uL (4.00-5.40); WHITE BLOOD COUNT 16.7 10^3/uL (4.0-10.0)
[2019-08-17 06:24] LABS: BLOOD UREA NITROGEN 14 MG/DL (7-18); CALCIUM LEVEL 7.7 MG/DL (8.8-10.2); CARBON DIOXIDE LEVEL 26 MEQ/L (21-32); CHLORIDE LEVEL 108 MEQ/L (98-107); CREATININE FOR GFR 0.74 MG/DL (0.55-1.30); GLOMERULAR FILTRATION RATE > 60.0 (>45); GLUCOSE, FASTING 167 MG/DL (70-100); POTASSIUM SERUM 3.8 MEQ/L (3.5-5.1); SODIUM LEVEL 139 MEQ/L (136-145)
[2019-08-17] MEDS: LEVEMIR (INSULIN DETEMIR) 1 UNITS/0.01ML SC SCH (09:16)
[2019-08-17] MEDS: CIPROFLOXACIN 400 MG in IV 1 EA IV SCH ×2 (09:16→21:26)
[2019-08-17] MEDS: ASPIRIN 81 MG ENTERIC TAB PO SCH (09:19)
[2019-08-17] MEDS: CLOPIDOGREL 75 MG TAB PO SCH (09:19)
[2019-08-17] MEDS: ROSUVASTATIN 10 MG TAB (CRESTOR) PO SCH (09:20)
[2019-08-17] MEDS: clonazePAM 0.5 MG TAB PO SCH ×2 (09:20→21:25)
--- NOTE | 2019-08-17 09:39 | IPNPDOC ---
Subjective Date Seen The patient was seen on 08/17/19. Subjective Chief Complaint/HPI Patient feeling slightly better but he still has abdominal pain and nausea General: Denies: ROS Unobtainable, Chills, Night Sweats, Fatigue, Malaise, Normal Appetite, Other Symptoms Constitutional: Denies: Chills, Fever, Malaise, Night Sweats, Weakness, Fatigue, Weight Loss, Lethargy, Other Skin: Denies: Rash, Lesions, Jaundice, Bruising, Itching, Dry, Breakdown, Nail Changes, Other Pulmonary: Denies: Dyspnea, Cough, Pleuritic Chest Pain, Other Symptoms Cardiovascular: Denies: Chest Pain, Palpitations, Orthopnea, Paroxysmal Noc. Dyspnea, Edema, Lt Headedness, Other Symptoms Gastrointestinal: Reports: Nausea, Abdominal Pain Genitourinary: Denies: Dysuria, Frequency, Incontinence, Hematuria, Retention, Other Symptoms Hematologic: Denies: Bruising, Bleeding Excessively, Petecchia, Purpura, Enlarged Lymph Nodes, Other Hematologic Endocrine: Denies: Polydipsia, Polyphagia, Polyuria, Heat Intolerance, Cold Intolerance, Other Endocrine Sx Musculoskeletal: Denies: Neck Pain, Back Pain, Shoulder Pain, Arm Pain, Hand P ain, Leg Pain, Foot Pain, Joint Pain, Muscle Pain, Spasms, Other Symptoms Neurological: Denies: Weakness, Numbness, Incoordination, Change in speech, Confusion, Seizures, Other Symptoms Psych: Denies: Mood Normal, Anxiety, Depression, Memory Issues, Thoughts of Self Harm, Anger, Thoughts of Harming Other, Other Psych Objective Physical Examination General Exam: Positive: Alert, Cooperative Eye Exam: Positive: PERRLA, Conjunctiva & lids normal ENT Exam: Positive: Atraumatic, Mucous membr. moist/pink Neck Exam: Positive: Supple, JVD Chest Exam: Positive: Clear to auscultation, Normal air movement Heart Exam: Positive: Rate Normal, Normal S1, Normal S2 Abdomen Exam: Positive: Normal bowel sounds, Other (Swetha, tenderness, F) Extremity Exam: Positive: Normal pulses Skin Exam: Positive: Nl turgor and temperature Neuro Exam: Positive: Strength at 5/5 X4 ext, Cranial Nerves 3-12 NL Assessment /Plan Problems (1) Colitis Status: Acute Problem Text: Patient is slightly better. Her WBC count is 16.7, now CT consistent with possible inflammatory versus infective colitis Considering all the risk factor. Will place patient on Cipro and Flagyl for possible infection etiology CBC, CMP in a.m. (2) Diabetes Onset Date: 09/09/2014 Status: Chronic Problem Text: . Resting blood sugar every before meals and at bedtime with co verage Continue home meds (3) Seizure disorder Status: Chronic Problem Text: Continue home meds (4) Depression Status: Chronic Problem Text: Opinion home meds (5) Dyslipidemia Status: Chronic Problem Text: Continue home meds Plan/VTE VTE Prophylaxis Ordered?: Yes VS, I&O, 24H, Fishbone Vital Signs/I&O Vital Signs Date Time Temp Pulse Resp B/P (MAP) Pulse Ox O2 Delivery O2 Flow Rate FiO2 08/17/19 06:00 98.0 64 18 133/70 (91) 96 08/17/19 00:10 Room Air I&O- Last 24 Hours up to 6 AM 08/17/19 05:59 Intake Total 150 ml Output Total 350 ml Balance -200 ml Laboratory Data 24H LABS Laboratory Tests 2 08/16/19 19:30: Immature Granulocyte % (Auto) 0.7, Neutrophils (%) (Auto) 80.2H, Lymphocytes (%) (Auto) 12.0L, Monocytes (%) (Auto) 6.5H, Eosinophils (%) (Auto) 0.4, Basophils (%) (Auto) 0.2, Neutrophils # (Auto) 16.1H, Lymphocytes # (Auto) 2.4, Monocytes # (Auto) 1.3H, Eosinophils # (Auto) 0.1, Basophils # (Auto) 0.0, Nucleated Red Blood Cells % (auto) 0.0, Prothrombin Time 14.2H, Prothromb Time International Ratio 1.13, Activated Partial Thromboplast Time 34.6, Anion Gap 10, Glomerular Filtration Rate > 60.0, Calcium Level 8.2L, Total Bilirubin 0.9, Direct Bilirubin 0.3H, Aspartate Amino Transf (AST/SGOT) 23, Alanine Aminotransferase (ALT/SGPT) 26, Alkaline Phosphatase 90, Total Creatine Kinase 30, Creatine Kinase MB < 1.0, Creatine Kinase MB Relative Index 3.33, Troponin I < 0.02, Total Protein 6.5, Albumin 3.2, Albumin/Globulin Ratio 0.97L, Lipase 79, Thyroid Stimulating Hormone (TSH) 1.000 08/16/19 21:06: Lactic Acid Level 1.0 08/16/19 21:18: POC Glucose (Misc Panel) 208H, POC Sodium (Misc Panel) 131L, POC Potassium (Misc Panel) 3.0L, POC Chloride (Misc Panel) 97L, POC Total CO2 (Misc Panel) 23.0, POC Blood Urea Nitrogen (Misc Panel 16, POC Ionized Calcium (Misc Panel) 4.2L, POC Creatinine (Misc Panel) 0.5L, POC Hematocrit (Misc Panel) 28.0L 08/17/19 01:20: Bedside Glucose (Misc Panel) 171H 08/17/19 05:50: Nucleated Red Blood Cells % (auto) 0.0, Anion Gap 5L, Glomerular Filtration Rate > 60.0, Calcium Level 7.7L CBC/BMP Laboratory Tests 08/16/19 19:30 08/17/19 05:50 REYES CISSE MD Aug 17, 2019 09:39
[2019-08-17] MEDS: NICOTINE 21MG/24HR 1 EA TRANSDERMAL TOP SCH (11:28)
[2019-08-17] MEDS: metroNIDAZOLE 500 MG in IV 1 EA IV SCH ×2 (11:28→17:44)
[2019-08-17 14:00] VITALS: BP 126/65
--- NOTE | 2019-08-17 15:41 | ECGEPIP ---
[facility] - ED Test Date: 2019-08-16 Pat Name: KEKE BROWNE Department: Room: [place] [address] Gender: Female Stroke Program Coordinator: ISAIAH : 1955 Requested By: BRIAN Richardson PA-C Order Number: [id number] Reading MD: Alexander Lewis Measurements Intervals [place] Rate: 83 P: 52 HI: 176 QRS: 63 QRSD: 109 T: 67 QT: 427 QTc: 502 Interpretive Statements SINUS RHYTHM POSSIBLE LEFT ATRIAL ENLARGEMENT MODERATE INTRAVENTRICULAR CONDUCTION DELAY SIMILAR TO 05/06/18 Electronically Signed on 08-17-2019 15:41:20 EST by Alexander Lewis
[2019-08-17 22:00] VITALS: BP 103/53
[2019-08-18] MEDS: metroNIDAZOLE 500 MG in IV 1 EA IV SCH ×3 (02:49→17:52)
[2019-08-18 06:00] VITALS: BP 113/62
[2019-08-18 06:05] LABS: BASO % 0.3 % (0.0-1.0); EOS # 0.2 10^3/uL (0.0-0.5); EOS % 1.9 % (0.0-3.0); HEMATOCRIT 28.5 % (36.0-47.0); HEMOGLOBIN 9.4 g/dl (12.0-15.5); LYMPH # 2.3 10^3/uL (1.5-5.0); MEAN CORPUSCULAR HEMOGLOBIN 29.2 pg (27.0-33.0); MEAN CORPUSCULAR VOLUME 88.5 fl (80.0-96.0); MONO # 0.8 10^3/uL (0.0-0.8); MONO % 7.6 % (0.0-5.0); NEUTROPHILS # 7.5 10^3/uL (1.5-8.5); NEUTROPHILS % 68.7 % (36.0-66.0); PLATELET COUNT, AUTOMATED 199 10^3/uL (150-450); RED BLOOD COUNT 3.22 10^6/uL (4.00-5.40)
[2019-08-18 06:44] LABS: ALBUMIN 2.3 GM/DL (3.2-5.2); ALT/SGPT 45 U/L (12-78); BILIRUBIN,TOTAL 0.8 MG/DL (0.2-1.0); BLOOD UREA NITROGEN 11 MG/DL (7-18); CALCIUM LEVEL 7.5 MG/DL (8.8-10.2); CARBON DIOXIDE LEVEL 23 MEQ/L (21-32); CHLORIDE LEVEL 111 MEQ/L (98-107); CREATININE FOR GFR 0.56 MG/DL (0.55-1.30); GLOMERULAR FILTRATION RATE > 60.0 (>45); GLUCOSE, FASTING 118 MG/DL (70-100); POTASSIUM SERUM 3.4 MEQ/L (3.5-5.1); SODIUM LEVEL 139 MEQ/L (136-145); TOTAL PROTEIN 5.5 GM/DL (6.4-8.2)
[2019-08-18] MEDS ORDERED: POTASSIUM CHLORIDE 10 MEQ SR TABLET PO ONE (08:00)
[2019-08-18] MEDS: ROSUVASTATIN 10 MG TAB (CRESTOR) PO SCH (08:00)
[2019-08-18] MEDS: carBAMazepine 100 MG *1/2* TAB PO SCH ×2 (08:00→20:29)
[2019-08-18] MEDS: clonazePAM 0.5 MG TAB PO SCH ×2 (08:00→20:30)
[2019-08-18] MEDS: HumaLOG INSULIN (NovoLOG) PER UNIT SC SCH ×4 (08:01→21:00)
[2019-08-18] MEDS: PANTOPRAZOLE 40MG INJ (PROTONIX) (C9113) IV SCH ×2 (08:01→20:30)
[2019-08-18] MEDS: GABAPENTIN 100 MG CAP PO SCH ×2 (08:01→20:29)
[2019-08-18] MEDS: ASPIRIN 81 MG ENTERIC TAB PO SCH (08:01)
[2019-08-18] MEDS: LEVEMIR (INSULIN DETEMIR) 1 UNITS/0.01ML SC SCH (08:01)
[2019-08-18] MEDS: CLOPIDOGREL 75 MG TAB PO SCH (08:01)
[2019-08-18] MEDS: CIPROFLOXACIN 400 MG in IV 1 EA IV SCH ×2 (08:02→20:29)
[2019-08-18] MEDS: NICOTINE 21MG/24HR 1 EA TRANSDERMAL TOP SCH (08:02)
--- NOTE | 2019-08-18 11:30 | IPNPDOC ---
Subjective Date Seen The patient was seen on 08/18/19. Subjective Chief Complaint/HPI Patient is still complaining of some pain in abdomen, son at his bedside, she had a limited knowledge of Serbian, so history was obtained from both the patient and her son at the bedside General: Denies: ROS Unobtainable, Chills, Night Sweats, Fatigue, Malaise, Normal Appetite, Other Symptoms Constitutional: Denies: Chills, Fever, Malaise, Night Sweats, Weakness, Fatigue, Weight Loss, Lethargy, Other Skin: Denies: Rash, Lesions, Jaundice, Bruising, Itching, Dry, Breakdown, Nail Changes, Other Pulmonary: Denies: Dyspnea, Cough, Pleuritic Chest Pain, Other Symptoms Cardiovascular: Denies: Chest Pain, Palpitations, Orthopnea, Paroxysmal Noc. Dyspnea, Edema, Lt Headedness, Other Symptoms Gastrointestinal: Reports: Abdominal Pain Musculoskeletal: Denies: Neck Pain, Back Pain, Shoulder Pain, Arm Pain, Hand Pain, Leg Pain, Foot Pain, Joint Pain, Muscle Pain, Spasms, Other Symptoms Neurological: Denies: Weakness, Numbness, Incoordination, Change in speech, Confusion, Seizures, Other Symptoms Objective Physical Examination General Exam: Positive: Alert, Cooperative Chest Exam: Positive: Clear to auscultation, Normal air movement Heart Exam: Positive: Rate Normal, Normal S1, Normal S2 Abdomen Exam: Positive: Normal bowel sounds, Other (mild tenderness at the epigastric area) Extremity Exam: Positive: Normal pulses Skin Exam: Positive: Nl turgor and temperature Neuro Exam: Positive: Strength at 5/5 X4 ext, Cranial Nerves 3-12 NL Assessment /Plan Problems (1) Colitis Status: Acute Problem Text: Jaya infective colitis as it is improving with the addition of IV antibiotics Her abdominal pain is reduced in intensity, but she still has remaining 10 . She tolerated clear liquids very well today. I will advance her diet to regular diet by today's Dinnertime. . Patient's WBC count is 11,000 today, slightly wet decreased potassium, which was supplemented The level work tomorrow and if she tolerates her regular diet and lab work is normal, then she can be discharged home tomorrow (2) Diabetes Onset Date: 09/09/2014 Status: Chronic Problem Text: . Resting blood sugar every before meals and at bedtime with coverage Continue home meds (3) Seizure disorder Status: Chronic Problem Text: Continue home meds (4) Depression Status: Chronic Problem Text: Opinion home meds (5) Dyslipidemia Status: Chronic Problem Text: Continue home meds Plan/VTE VTE Prophylaxis Ordered?: Yes VS, I&O, 24H, Fishbone Vital Signs/I&O Vital Signs Date Time Temp Pulse Resp B/P (MAP) Pulse Ox O2 Delivery O2 Flow Rate FiO2 08/18/19 06:00 97.6 69 18 113/62 (79) 96 08/17/19 00:10 Room Air I&O- Last 24 Hours up to 6 AM 08/18/19 05:59 Intake Total 1796 ml Output Total 1700 ml Balance 96 ml Laboratory Data 24H LABS Laboratory Tests 2 08/17/19 12:17: Bedside Glucose (Misc Panel) 175H 08/17/19 16:40: Bedside Glucose (Misc Panel) 190H 08/17/19 20:31: Bedside Glucose (Misc Panel) 117H 08/18/19 05:34: Immature Granulocyte % (Auto) 0.5, Neutrophils (%) (Auto) 68.7H, Lymphocytes (%) (Auto) 21.0L, Monocytes (%) (Auto) 7.6H, Eosinophils (%) (Auto) 1.9, Basophils (%) (Auto) 0.3, Neutrophils # (Auto) 7.5, Lymphocytes # (Auto) 2.3, Monocytes # (Auto) 0.8, Eosinophils # (Auto) 0.2, Basophils # (Auto) 0.0, Nucleated Red Blood Cells % (auto) 0.0, Anion Gap 5L, Glomerular Filtration Rate > 60.0, Calcium Level 7.5L, Total Bilirubin 0.8, Aspartate Amino Transf (AST/SGOT) 52H, Alanine Aminotransferase (ALT/SGPT) 45, Alkaline Phosphatase 77, Total Protein 5.5L, Albumin 2.3#L, Albumin/Globulin Ratio 0.72L CBC/BMP Laboratory Tests 08/18/19 05:34 REYES CISSE MD Aug 18, 2019 11:30
[2019-08-18 14:00] VITALS: BP 121/70
[2019-08-18] MEDS: LITHIUM CARBONATE 150 MG CAP PO SCH (20:29)
[2019-08-18] MEDS: SERTRALINE 100 MG TAB PO SCH (20:29)
[2019-08-18 22:00] VITALS: BP 139/63
[2019-08-19] MEDS: metroNIDAZOLE 500 MG in IV 1 EA IV SCH (01:54)
[2019-08-19 05:53] LABS: BASO % 0.4 % (0.0-1.0); EOS # 0.3 10^3/uL (0.0-0.5); EOS % 2.5 % (0.0-3.0); HEMATOCRIT 31.3 % (36.0-47.0); HEMOGLOBIN 10.3 g/dl (12.0-15.5); LYMPH # 2.3 10^3/uL (1.5-5.0); MEAN CORPUSCULAR HEMOGLOBIN 29.2 pg (27.0-33.0); MEAN CORPUSCULAR HGB CONC 32.9 g/dl (32.0-36.5); MEAN CORPUSCULAR VOLUME 88.7 fl (80.0-96.0); MONO # 0.6 10^3/uL (0.0-0.8); MONO % 5.6 % (0.0-5.0); NEUTROPHILS # 7.8 10^3/uL (1.5-8.5); NEUTROPHILS % 69.9 % (36.0-66.0); PLATELET COUNT, AUTOMATED 232 10^3/uL (150-450); RED BLOOD COUNT 3.53 10^6/uL (4.00-5.40); WHITE BLOOD COUNT 11.1 10^3/uL (4.0-10.0)
[2019-08-19 06:00] VITALS: BP 126/69
[2019-08-19 06:22] LABS: ALBUMIN 2.7 GM/DL (3.2-5.2); ALT/SGPT 40 U/L (12-78); BILIRUBIN,TOTAL 0.4 MG/DL (0.2-1.0); BLOOD UREA NITROGEN 6 MG/DL (7-18); CALCIUM LEVEL 7.9 MG/DL (8.8-10.2); CARBON DIOXIDE LEVEL 21 MEQ/L (21-32); CHLORIDE LEVEL 110 MEQ/L (98-107); CREATININE FOR GFR 0.58 MG/DL (0.55-1.30); GLOMERULAR FILTRATION RATE > 60.0 (>45); GLUCOSE, FASTING 127 MG/DL (70-100); MAGNESIUM LEVEL 1.9 MG/DL (1.8-2.4); POTASSIUM SERUM 3.5 MEQ/L (3.5-5.1); SODIUM LEVEL 139 MEQ/L (136-145)
[2019-08-19] MEDS ORDERED: POTASSIUM CHLORIDE 10 MEQ SR TABLET PO ONE (08:00)
[2019-08-19] MEDS: clonazePAM 0.5 MG TAB PO SCH (09:09)
[2019-08-19] MEDS: carBAMazepine 100 MG *1/2* TAB PO SCH (09:09)
[2019-08-19] MEDS: ROSUVASTATIN 10 MG TAB (CRESTOR) PO SCH (09:09)
[2019-08-19] MEDS: CIPROFLOXACIN 400 MG in IV 1 EA IV SCH (09:10)
[2019-08-19] MEDS: PANTOPRAZOLE 40MG INJ (PROTONIX) (C9113) IV SCH (09:10)
[2019-08-19] MEDS: CLOPIDOGREL 75 MG TAB PO SCH (09:10)
[2019-08-19] MEDS: ASPIRIN 81 MG ENTERIC TAB PO SCH (09:10)
[2019-08-19] MEDS: HumaLOG INSULIN (NovoLOG) PER UNIT SC SCH ×2 (09:11→12:57)
[2019-08-19] MEDS: GABAPENTIN 100 MG CAP PO SCH (09:11)
[2019-08-19] MEDS: NICOTINE 21MG/24HR 1 EA TRANSDERMAL TOP SCH (09:12)
[2019-08-19] MEDS: LEVEMIR (INSULIN DETEMIR) 1 UNITS/0.01ML SC SCH (09:12)
--- NOTE | 2019-08-19 18:17 | DS.PDOC ---
Discharge Summary General Date of Admission Aug 17, 2019 at 00:00 Date of Discharge July, Attending Physician: AMANDA CORONA MD Discharge Summary PROCEDURES PERFORMED DURING STAY: None. ADMITTING DIAGNOSES: 1. Infectious/inflammatory colitis. DISCHARGE DIAGNOSES: 1. Infectious/inflammatory colitis. COMPLICATIONS/CHIEF COMPLAINT: Colitis;Depression;Diabetes;Dyslipidemia. HISTORY OF PRESENT ILLNESS: 64-year-old female with past medical history of seizure disorder, COPD, CVA, diabetes mellitus, was admitted for infectious/inflammatory colitis. Patient has improved significantly with supportive care and antibiotics. She is also been evaluated by physical therapy and cleared for discharge home. Patient has no complaints today, tolerating a regular diet, denies any nausea, vomiting, abdominal pain or diarrhea. She remains afebrile and hemodynamically stable for discharge home with outpatient follow-up. HOSPITAL COURSE: As above. DISCHARGE MEDICATIONS: Please see below. ALLERGIES: Please see below. PHYSICAL EXAMINATION: VITAL SIGNS: Please see below. GENERAL: No distress HEENT: Normocephalic, atraumatic, moist mucous membranes NECK: Supple CARDIOVASCULAR EXAMINATION: S1, S2, no murmurs RESPIRATORY EXAMINATION: Clear to auscultation, no wheezing ABDOMINAL EXAMINATION: Soft, nontender, nondistended, positive bowel sounds EXTREMITIES: Range of motion intact SKIN: No rash NEUROLOGICAL EXAMINATION: Alert and oriented 3, no focal deficits PSYCHIATRIC EXAMINATION: Calm and cooperative LABORATORY DATA: Please see below. IMAGING: CT consistent with infectious/inflammatory colitis PROGNOSIS: Fair ACTIVITY: As tolerated. DIET: Cardiac with consistent carbs DISCHARGE PLAN: Follow-up with PCP in 1-2 weeks DISPOSITION: 01 Home, Self-Care. DISCHARGE INSTRUCTIONS: 1. As above. DISCHARGE CONDITION: Stable. TIME SPENT ON DISCHARGE: Greater than 34 minutes. Vital Signs/I&Os Vital Signs Date Time Temp Pulse Resp B/P (MAP) Pulse Ox O2 Delivery O2 Flow Rate FiO2 08/19/19 06:00 99.1 66 17 126/69 (88) 98 Room Air I&O- Last 24 Hours up to 6 AM 08/19/19 06:00 Intake Total 1090 ml Output Total 800 ml Balance 290 ml Laboratory Data Labs 24H Laboratory Tests 2 08/18/19 20:51: Bedside Glucose (Misc Panel) 103 08/19/19 05:32: Immature Granulocyte % (Auto) 0.6, Neutrophils (%) (Auto) 69.9H, Lymphocytes (%) (Auto) 21.0L, Monocytes (%) (Auto) 5.6H, Eosinophils (%) (Auto) 2.5, Basophils (%) (Auto) 0.4, Neutrophils # (Auto) 7.8, Lymphocytes # (Auto) 2.3, Monocytes # (Auto) 0.6, Eosinophils # (Auto) 0.3, Basophils # (Auto) 0.0, Nucleated Red Blood Cells % (auto) 0.0, Anion Gap 8, Glomerular Filtration Rate > 60.0, Calcium Level 7.9L, Magnesium Level 1.9, Total Bilirubin 0.4, Aspartate Amino Transf (AST/SGOT) 28, Alanine Aminotransferase (ALT/SGPT) 40, Alkaline Ph osphatase 95, Total Protein 6.0L, Albumin 2.7L, Albumin/Globulin Ratio 0.82L 08/19/19 12:02: Bedside Glucose (Misc Panel) 182H CBC/BMP Laboratory Tests 08/19/19 05:32 FSBS Laboratory Tests Test 08/18/19 20:51 08/19/19 12:02 Range/Units Bedside Glucose (Misc Panel) 103 182 80-115 MG/DL Discharge Medications Scheduled Aspirin (Aspirin EC) 81 Mg Tabec, 81 MG PO DAILY, (Reported) Carbamazepine (Carbamazepine) 100 Mg Tab.chew, 100 MG PO BID, (Reported) Clonazepam (Clonazepam) 0.5 Mg Tab, 0.5 MG PO BID, (Reported) Clopidogrel Bisulfate (Plavix) 75 Mg Tablet, 75 MG PO DAILY, (Reported) Dulaglutide (Trulicity) 0.75 Mg/0.5 Ml Pen.injctr, 1 INJ SQ QWEEK, (Reported) TAKES ON SUNDAY Gabapentin (Gabapentin) 100 Mg Capsule, 200 MG PO BID, (Reported) Insulin Degludec (Tresiba Flextouch U-100) 100 Unit/1 Ml Insuln.pen, 32 UNIT SC BID, (Reported) Insulin Human Lispro (Novolog) 100 U/Ml Inj, 1 DOSE SC ACHS, (Reported) [place] Carbonate ([place] Carbonate) 150 Mg Capsule, 150 MG PO QHS, (Reported) Nicotine (Nicotine Patch) 21 Mg Patch.td24, 1 PATCH TOP DAILY, (Reported) Omeprazole (Omeprazole) 40 Mg Capsule.dr, 40 MG PO DAILY, (Reported) Rosuvastatin Calcium (Rosuvastatin Calcium) 40 Mg Tab, 40 MG PO DAILY, (Reported) Sertraline HCl (Sertraline HCl) 100 Mg Tab, 200 MG PO QHS, (Reported) Sitagliptin Phos/Metformin HCl (Janumet Xr 50-500 mg Tablet) 1 Each Tbmp.24hr, 1 TAB PO QHS, (Reported) Scheduled PRN Acetaminophen (Acetaminophen) 325 Mg Tablet, 650 MG PO Q4-6H PRN for PAIN, (Reported) Allergies Coded Allergies: Penicillins (Verified Allergy, Intermediate, Rash & Hives, 08/16/19) AMANDA CORONA MD Aug 19, 2019 18:17
== END 2019-08-19 13:35 | disposition home or self-care (01) | DRG 392 ==
LOC: M ED 19:01 → M ED INP 08-17 → M MSPAV 08-17 01:07
PROVIDERS: ADMIT Internal Medicine; ATTEND Internal Medicine
DX: A09 Infectious gastroenteritis and colitis, unspecified (principal); E11.65 Type 2 diabetes mellitus with hyperglycemia; E78.5 Hyperlipidemia, unspecified; F32.9 Major depressive disorder, single episode, unspecified; J44.9 Chronic obstructive pulmonary disease, unspecified; Z86.73 Personal history of transient ischemic attack (TIA), and cerebral infarction without residual deficits; G40.909 Epilepsy, unspecified, not intractable, without status epilepticus; Z79.82 Long term (current) use of aspirin; Z79.899 Other long term (current) drug therapy; Z79.4 Long term (current) use of insulin; Z88.0 Allergy status to penicillin; F41.9 Anxiety disorder, unspecified; F17.200 Nicotine dependence, unspecified, uncomplicated; E87.6 Hypokalemia

== ENCOUNTER → 2019-09-30 | Outpatient (CLI) | payer OTHER ==
[~2019-09-30] MED LIST changes: +ACET1TAB55 PO; +CARB10TACH PO; +GABA-1171 PO; +JANU50TA22 PO; +LITH150C PO; +NICO21PAT TOP; +OMEP-221 PO; +TRES1INJ2 SC; +TRUL10IN SQ
--- NOTE | 2019-09-30 20:01 | REP ---
COOKIE SWALLOW The procedure was performed under the direct supervision of Dr. Sims. The procedure was performed with Lisseth Seo from speech pathology present. 5 ml aliquots of thin, pudding, soft and mixed fruit consistency barium as well as a barium pill were administered. There is no evidence of penetration or aspiration. The detailed report of this examination will be provided by speech pathology. 1.4 minutes of fluoroscopy time was utilized for this procedure. Electronically Signed by ISH Goodman 09/30/2019 04:33 P Electronically Signed by Sigifredo Sims MD 09/30/2019 07:52 P
== END ==
LOC: M ST 14:24
PROVIDERS: ATTEND Internal Medicine Gastroenterology
DX: R13.10 Dysphagia, unspecified (principal)

== ENCOUNTER → 2020-06-25 | Outpatient (CLI) | payer OTHER ==
--- NOTE | 2020-06-25 16:43 | REPMRS ---
Patient History No known family history of cancer. 3D TOMOSYNTHESIS WAS PERFORMED. [facility] lifetime risk for [facility] cancer [facility] 5.3%. Volpara breast density b. Digital Woman Screen Mammo: June 25, 2020 - Exam #: [id number] Bilateral CC and MLO view(s) were taken. Technologist: Luciana Block, Technologist Prior study comparison: April 15, 2018, bilateral digital mammo screening bilat, performed at [facility]. January 15, 2015, bilateral digital mammo screening bilat, performed at [facility]. FINDINGS: There are scattered fibroglandular densities. There has been no change in the appearance of the mammogram from the prior studies. There is a mild amount of residual fibroglandular tissue which is fairly symmetric. There is no interval development of dominant mass, architectural distortion, or clustered microcalcification suggestive of malignancy. Assessment: BI-RADS/ACR category 1 mammogram. Negative Mammogram. Recommendation Routine screening mammogram in 1 year (for women over age 40). This mammogram was interpreted with the aid of an FDA-approved computer-aided dectection system. Electronically Signed By: Eugenio Kat MD 06/25/20 [id number]
== END ==
LOC: M WHC 15:25
PROVIDERS: ATTEND Family Medicine
DX: Z12.31 Encounter for screening mammogram for malignant neoplasm of breast (principal)

== ENCOUNTER → 2020-09-08 | Outpatient (CLI) | payer OTHER ==
[~2020-09-08] MED LIST changes: +GABA-282 PO; -GABA-843 PO
--- NOTE | 2020-09-09 11:07 | REP ---
INDICATION: NICOTINE DEPENDENCE COMPARISON: 08/16/2019 TECHNIQUE: Axial noncontrast images from the thoracic inlet to the upper abdomen using low-dose lung screening technique (LDCT). FINDINGS: Lung fay are well aerated and clear with minimal chronic appearing age-related changes noted. Subtle rounded non solid densities in the posterior right lower lobe (series 201; images 35, 39, 45) measure up to 8 mm. No further significant consolidation, nodule or mass lesion appreciated. No effusion. No pneumothorax. Tracheobronchial tree is patent. Atherosclerotic changes to the thoracic aorta and coronary arteries noted. IMPRESSION: Lung rads category 2 non solid ground-glass nodules up to 8 mm in the posterior right lower lobe. Management recommendations include annual low-dose CT evaluation. <Electronically signed by Roberto Pinedo > 09/09/20 1102
== END ==
LOC: M RAD 17:27
PROVIDERS: ATTEND Family Medicine
DX: Z12.2 Encounter for screening for malignant neoplasm of respiratory organs (principal); F17.210 Nicotine dependence, cigarettes, uncomplicated; R91.8 Other nonspecific abnormal finding of lung field

== ENCOUNTER → 2021-06-27 | Outpatient (CLI) | payer OTHER ==
[~2021-06-27] MED LIST changes: -AMIT10TA PO; +AMIT10TA7 PO; +ASPI-569 PO; -ASPI81TAEC PO; +ISOVUE-370 76% 100ML VIAL ONE; +OMEP40CA4 PO; -OMEP40CA97 PO
--- NOTE | 2021-06-27 11:58 | REP ---
INDICATION: SOLITARY PULMONARY NODULE. COMPARISON: Low-dose lung screening CT 09/08/2020, CT 08/16/2019 TECHNIQUE: Bolus 100 mL Isovue 370 given scanning through the chest with coronal and sagittal reconstructions provided. FINDINGS: The lung fay are well inflated. There is again noted to be some posterior/dependent atelectatic changes in the mid and lower lung zone involving the posterior segment right upper lobe and lower lobe almost to the costophrenic sulcus. Ill-defined semi solid nodule on image 44 about 8 mm and another about 8 mm mm on image 39 are partially obscured in the zone of the dependent atelectatic change. These superior segment lesions are stable. There is some dependent atelectatic change along the anterior margin of the major fissure as well in the mid upper lung zone. Left lung shows minimal dependent atelectatic change. No pleural effusion, calcified pleural plaque, pleural based mass, acute infiltrate with air bronchograms or pneumothorax. No new nodules. Heart is not enlarged and there is no pericardial thickening or effusion. The aorta is without aneurysm or dissection. No pathologic sized mediastinal, hilar or axillary adenopathy. Some coronary artery calcifications are noted the main, right and left pulmonary arteries in the mediastinum are without filling defects. Thoracic aorta without aneurysm or dissection. There is no axillary or supraclavicular mass. Tracheal airway unremarkable. Bones show no destructive lesion or compression deformity in the spine. There is a stable sclerotic focus posteriorly in the T5 vertebral body and abutting the neural arch. Sternum, manubrium, medial clavicles, AC joints, visualized portions of scapulae and humeral heads as well as ribs show no focal lesion or destructive change. IMPRESSION: 1. Semi solid 8 mm nodules in a zone of dependent/subsegmental atelectasis posteriorly in the right lower lobe, unchanged from 09/08/2020 in size. No pleural effusion, new parenchymal nodules or masses nor other significant finding. This CT documents an approximately 22 months stability of this finding. 2. No other significant or acute finding. <Electronically signed by Pierce Hui > 06/27/21 [id number]
== END ==
LOC: M PLAIMG 10:10
PROVIDERS: ATTEND Family Medicine
DX: R91.1 Solitary pulmonary nodule (principal)
CPT/HCPCS: 71260; Q9967

== ENCOUNTER 2022-01-15 14:31 | Emergency (ER) | payer OTHER ==
[~2022-01-15] VITALS: Ht 160 cm; Wt 56.8 kg
[~2022-01-15 14:31] MED LIST changes: -ISOVUE-370 76% 100ML VIAL ONE; -OMEP-221 PO; +OMEP40CA5 PO
[2022-01-15 18:20] VITALS: BP 133/67
== END 2022-01-15 19:06 | disposition home or self-care (01) ==
LOC: M ED 14:31
DX: S09.90XA Unspecified injury of head, initial encounter (principal); S22.31XA Fracture of one rib, right side, initial encounter for closed fracture; W01.0XXA Fall on same level from slipping, tripping and stumbling without subsequent striking against object, initial encounter; Y92.89 Other specified places as the place of occurrence of the external cause; E11.9 Type 2 diabetes mellitus without complications; J44.9 Chronic obstructive pulmonary disease, unspecified; F33.9 Major depressive disorder, recurrent, unspecified; F41.9 Anxiety disorder, unspecified; G40.909 Epilepsy, unspecified, not intractable, without status epilepticus; I73.9 Peripheral vascular disease, unspecified; Z86.73 Personal history of transient ischemic attack (TIA), and cerebral infarction without residual deficits; Z79.899 Other long term (current) drug therapy; Z79.84 Long term (current) use of oral hypoglycemic drugs; Z79.82 Long term (current) use of aspirin; Z79.4 Long term (current) use of insulin; Z79.01 Long term (current) use of anticoagulants; Z88.0 Allergy status to penicillin; F17.210 Nicotine dependence, cigarettes, uncomplicated

== ENCOUNTER → 2022-01-31 | Outpatient (CLI) | payer OTHER ==
[~2022-01-31] MED LIST changes: +ISOVUE-370 76% 100ML VIAL As Ordered ONE
== END ==
LOC: M RAD 17:39
PROVIDERS: ATTEND Family Medicine
DX: R91.1 Solitary pulmonary nodule (principal); R93.3 Abnormal findings on diagnostic imaging of other parts of digestive tract; E04.1 Nontoxic single thyroid nodule; K76.0 Fatty (change of) liver, not elsewhere classified
CPT/HCPCS: 71260; Q9967

== ENCOUNTER → 2022-08-04 | Outpatient (CLI) | payer OTHER ==
[~2022-08-04] MED LIST changes: +CLOP75TA99 PO; +EZET-18 PO; -ISOVUE-370 76% 100ML VIAL As Ordered ONE; -PLAV1TAB2 PO; +SIMV-253 PO; -VYTO10TA22 PO; -ZOCO20TA PO
== END ==
LOC: M RAD 17:07
PROVIDERS: ATTEND Internal Medicine Pulmonary Disease
DX: R91.8 Other nonspecific abnormal finding of lung field (principal); J43.9 Emphysema, unspecified

== ENCOUNTER → 2022-08-08 | Outpatient (CLI) | payer OTHER ==
[~2022-08-08] MED LIST changes: +ISOVUE-370 76% 100ML VIAL As Ordered ONE
== END ==
LOC: M RAD 17:12
PROVIDERS: ATTEND Family Medicine
DX: K86.9 Disease of pancreas, unspecified (principal)

== ENCOUNTER → 2022-11-23 | Outpatient (CLI) | payer OTHER ==
[~2022-11-23] MED LIST changes: -ISOVUE-370 76% 100ML VIAL As Ordered ONE; +PROHANCE 279.3MG/ML 15ML VIAL As Ordered ONE; +SIMV-254 PO; -ZOCO40TA PO
== END ==
LOC: M RAD 15:51
PROVIDERS: ATTEND Family Medicine
DX: K86.2 Cyst of pancreas (principal); D35.01 Benign neoplasm of right adrenal gland; N20.0 Calculus of kidney
CPT/HCPCS: 74183; A9576

== ENCOUNTER → 2024-06-23 | Outpatient (CLI) | payer OTHER ==
[~2024-06-23] MED LIST changes: +EZET10TA58 PO; +GABA-1172 PO; -GABA-282 PO; +LIDOCAINE 1% MDV 20ML VIAL As Ordered ONE; -PROHANCE 279.3MG/ML 15ML VIAL As Ordered ONE; -ROSU40TA4 PO; +ROSU40TA81 PO; -ZETI10TA16 PO
[2024-06-23 13:35] VITALS: BP 107/61; TEMP 99; O2SAT 99
== END ==
LOC: M IRPRO 13:10
PROVIDERS: ATTEND Otolaryngology
DX: E04.1 Nontoxic single thyroid nodule (principal)

== ENCOUNTER → 2025-06-22 | Outpatient (CLI) | payer SELFPAY ==
[~2025-06-22] MED LIST changes: +AMIT10TA11 PO; -AMIT10TA7 PO; +CENT1TAB PO; +CVS2500C PO; +ERGO500029 PO; +JARD1TAB3 PO; -LIDOCAINE 1% MDV 20ML VIAL As Ordered ONE; +METF-838 PO; +MIDO5TA PO; +NOXI1TAB PO; +SERT200C PO
== END ==
LOC: M RAD 12:17
PROVIDERS: ATTEND Otolaryngology
DX: E04.1 Nontoxic single thyroid nodule (principal)